=== PATIENT | female | born 1985 | race Two or more races ===

== ENCOUNTER 2021-11-08 10:18 | Emergency (ER) | payer OTHER, SELFPAY ==
[2021-11-08 10:21] VITALS: BP 117/67; PULSE 96; RESP 18; TEMP 36.2; O2SAT 98
[2021-11-08 11:02] LABS: Basophils Percent Auto 0.3 % (0.2-1.2); Eosinophils Absolute Auto 0.1 K/mm3 (0-0.3); Hematocrit 33.4 % (37.0-47.0); Hemoglobin 10.7 g/dL (12.0-15.0); Immature Granulocyte Absolute 0.12 K/mm3 (0.00-0.031); Immature Granulocyte Percent A 1.2 % (0-0.5); Lymphocytes Absolute Auto 1.93 K/mm3 (0.9-3.2); Lymphocytes Percent Auto 19.1 % (18.3-44.2); Mean Corpuscular Hemoglobin 29.1 pg (26-34); Mean Corpuscular Volume 90.8 fl (80-100); Mean Platelet Volume 8.5 fl (7.4-10.4); Monocytes Absolute Auto 0.6 K/mm3 (0.1-0.6); Monocytes Percent Auto 5.9 % (2.6-8.5); Neutrophils Absolute Auto 7.3 K/mm3 (1.3-6.7); Neutrophils Percent Auto 72.5 % (45.5-73.1); Platelet Count Result 192 k/mm3 (150-375); Red Blood Count 3.68 M/mm3 (4.2-5.4); Red Cell Distribution Width 15.1 % (11.5-14.5); White Blood Count 10.1 K/mm3 (4.5-10.0)
[2021-11-08 11:09] LABS: Appearance Urine Clear (Clear); Bilirubin Urine Negative (Negative); Blood Urine Trace-lysed (Negative); Color Urine Yellow (Yellow); Glucose Urine UA Negative (Negative); Ketones Urine Trace mg/dL (Negative); Leukocyte Esterase Ur Negative LEU/UL (Negative); Nitrate Urine Negative (Negative); Protein Urine Negative (Negative); Specific Grav Ur 1.025 (1.001-1.035); Urobilinogen Urine 0.2 mg/dL (<2.0); pH Urine 5.5 (5.0-9.0)
[2021-11-08 11:12] LABS: Alanine Aminotransferase 24 U/L (6-35); Albumin Level 3.5 g/dL (3.5-5.1); Alkaline Phosphatase 87 U/L (38-126); Anion Gap 8 mmol/L (8-16); Aspartate Amino Transferase 35 U/L (14-36); Bilirubin,Total 0.3 mg/dL (0.2-1.3); Blood Urea Nitrogen 4 mg/dL (7-17); Calcium 8.3 mg/dL (8.4-10.2); Carbon Dioxide 17 mmol/L (22-30); Chloride 109 mmol/L (98-107); Estimated CRCL calculation 188 ml/min; Estimated Glomerular Filt Rate > 60; Glucose 105 mg/dL (65-110); Potassium 3.9 mmol/L (3.4-5.0); Sodium 134 mmol/L (137-145)
[2021-11-08 11:14] LABS: Mucus Urine Rare /lpf; RBC Urine 0-2 /hpf (0-2); WBC Urine 0-3 /hpf
[2021-11-08 11:15] LABS: Add Urine Microscopic? YES
[2021-11-08] MEDS: LACTATED RINGERS 1,000 ML 999 ML IV CONT (11:31)
[2021-11-08] MEDS: FAMOTIDINE 20 MG/2 ML VIAL IV PUSH (11:33)
[2021-11-08] MEDS: ACETAMINOPHEN 325 MG TABLET 650 MG PO (11:35)
[2021-11-08] MEDS: diphenhydrAMINE HCl INJ 50 MG/ML VIAL 25 MG IV PUSH (11:36)
[2021-11-08] MEDS: METOCLOPRAMIDE HCL INJ 10 MG/2 ML VIAL IV PUSH (11:36)
--- NOTE | 2021-11-08 12:16 | ED.PREGNANCY ---
HPI - General Chief complaint: Abdominal Pain Stated complaint: 23 weeks /abd pain Time Seen by Provider: 11/08/21 11:04 History of Present Illness HPI Narrative: 36-year-old female who is 23 weeks presents here with left upper quadrant discomfort, and some left back pain. Denies any fevers or chills, vaginal bleeding, she does have some nausea also. No history of kidney stones. She did take some Tylenol at home with some improvement but still has some symptoms. No dysuria. No contractions. Related Data Allergies Allergy/AdvReac Type Severity Reaction Status Date / Time No Known Drug Allergies AdvReac Mild Other Verified 11/08/21 11:29 Review of Systems Review of Systems: CONST: No fever. HEENT: No sore throat C/V: No chest pain RESP: No cough GI: Reports abdominal pain, nausea : No dysuria. M/S: No joint pain. SKIN: No rash. NEURO: [No headache or focal numbness or weakness] PSYCH: [No depression] [facility], [facility] Past Medical History Medical History (Updated 11/08/21 @ 19:57 by Concha Duran MD) No active medical problems Social History Social History (Updated 11/08/21 @ 19:57 by Concha Duran MD) Smoking status: Never smoker Exam Narrative: EXAMINATION OF ORGAN SYSTEMS/BODY AREAS: Constitutional: Vital signs per nursing GENERAL: Appears uncomfortable in bed HEAD: Normal with no signs of head trauma. EYES: EOMI, conjunctiva normal ENT: Hearing grossly intact LUNGS: Nonlabored breathing. HEART: [Regular rate and rhythm] ABD: [Soft], mildly tender to palpation left upper quadrant no flank tenderness EXT: Normal range of motion SKIN: [No rashes or lesions.] NEURO: [Alert and oriented x 3. No gross focal sensory or strength deficits.] PSYCH: Normal affect Course Vital Signs Vital signs: Vital Signs Temperature 97.2 F L 11/08/21 10:21 Pulse Rate 96 11/08/21 10:21 Respiratory Rate 18 11/08/21 10:21 Blood Pressure 117/67 11/08/21 10:21 Pulse Oximetry 98 11/08/21 10:21 Oxygen Delivery Room Air 11/08/21 10:21 Temperature 97.2 F L 11/08/21 10:21 Pulse Rate 96 11/08/21 10:21 Respiratory Rate 18 11/08/21 10:21 Blood Pressure 117/67 11/08/21 10:21 Pulse Oximetry 98 11/08/21 10:21 Oxygen Delivery Room Air 11/08/21 10:21 MDM - OB/Uterine Contractions MDM Narrative Medical decision making narrative: Fifteen 36-year-old female at 23 weeks presenting with flank/abdominal tenderness, vital stable, exam does show some left sided pain, UTI/Bipin versus concerns for gastritis versus kidney stones, or discomfort of . Labs are unremarkable including a negative UA, patient is given fluids, Pepcid, Reglan with improvement in her symptoms, I discussed the case with GANG HEAD SAW OPERATOR on-call Dr. Carpio who agrees that getting a CT at this time would not be beneficial, as she is feeling better, she should follow-up in the clinic tomorrow and is stable for discharge home. Discussed this with the patient and family at bedside, they are agreeable to this plan. Strict return precautions provided. Lab Data Result diagrams: 11/08/21 10:54 11/08/21 10:54 Labs: Lab Results 11/08/21 11/08/21 11/08/21 Range/Units 10:54 10:54 10:54 WBC 10.1 H (4.5-10.0) K/mm3 RBC 3.68 L (4.2-5.4) M/mm3 Hgb 10.7 L (12.0-15.0) g/dL Hct 33.4 L (37.0-47.0) % MCV 90.8 (80-100) fl MCH 29.1 (26-34) pg MCHC 32.0 (32-36) g/dl RDW 15.1 H (11.5-14.5) % Plt Count 192 (150-375) k/mm3 MPV 8.5 (7.4-10.4) fl Immature Gran % (Auto) 1.2 H (0-0.5) % Neut % (Auto) 72.5 (45.5-73.1) % Lymph % (Auto) 19.1 (18.3-44.2) % [place] % (Auto) 5.9 (2.6-8.5) % Eos % (Auto) 1.0 (0-4.4) % Baso % (Auto) 0.3 (0.2-1.2) % Lymph # (Auto) 1.93 (0.9-3.2) K/mm3 [place] # (Auto) 0.6 (0.1-0.6) K/mm3 Eos # (Auto) 0.1 (0-0.3) K/mm3 Baso # (Auto) 0.0 (0.0-0.1) K/mm3 Abs Immat Gran (auto) 0
== END 2021-11-08 12:48 | disposition home or self-care (01) ==
PROVIDERS: Emergency Provider Emergency Medicine; PCP Physician Assistant
DX: O26.892 Other specified pregnancy related conditions, second trimester (principal); R10.12 Left upper quadrant pain; Z3A.23 23 weeks gestation of pregnancy
CPT/HCPCS: 36415; 80053; 81001; 81025; 85025; 96361; 96374; 96375; 99284; A9270; J1200; J2765; J7120

== ENCOUNTER 2021-11-09 08:57 | Observation (INO) | payer OTHER, SELFPAY ==
--- NOTE | 2021-11-09 08:57 | OBADM ---
This patient, Faith Schumacher, admitted to the OB room [facility] for observation. Patient/family oriented to hospital policies and general routines including ID bracelet, bed and alarms, visiting hours, pain management, procedures, bathroom and other care routines, personal items, smoking policy, room service/diet, and visiting hours. Patient/Family are encouraged to report perceived risks to care and to ask questions if they do not understand what they are told or what they should do.
--- NOTE | 2021-11-09 09:15 | PC.NURSE ---
Process Control Tech use to gather information from the pt. Pt moroccan speaking only. Pt reports being in the ER yesterday and discharged home. Pt reports having left upper abdominal pain that started yesterday. Pt took Tylenol last around 2200 which helped her pain until around 0200 in the morning. Pt revisited the ER again this morning and was brought to OB. Pt denies any other symptoms.
[2021-11-09 09:24] VITALS: BP 117/63; PULSE 107
--- NOTE | 2021-11-09 09:47 | PC.NURSE ---
Dr. Carpio updated on this pt. Dr. Carpio ordered amylase and lipase be drawn and 20mg Protonix be given.
[2021-11-09 09:50] VITALS: BMI 30.2
[2021-11-09] MEDS: PANTOPRAZOLE SOD SESQUIHYDRATE 20 MG TAB PO (10:01)
[2021-11-09 10:14] LABS: Amylase 60 U/L (30-110); Lipase 71 U/L (23-300)
--- NOTE | 2021-11-09 10:45 | PC.NURSE ---
Dr. Carpio updated on pt labs, orders received for pt to discharge. Dr. Carpio would like pt to see her primary doctor and change her diet to low fat, no grease, no fried foods.
--- NOTE | 2021-11-09 10:47 | PM.OBTRLD ---
OB - Triage/Final Diagnosis Visit Information Date of evaluation: 11/09/21 Reason for evaluation: other (abdominal pain) Comments/Additional reasons for admission: I have assessed the risk for this patient, Faith Schumacher, and determined that she would benefit from observation care. Evaluation Laboratory results: Laboratory Tests 11/09/21 09:57 Amylase 60 Lipase 71 Vital signs: Vital Signs - 24 hr 11/09/21 09:24 Pulse Rate 107 H Blood Pressure 117/63
[2021-11-09 10:50] VITALS: BP 117/63; PULSE 105
[2021-11-09] MEDS: FAMOTIDINE 20 MG TABLET PO (11:04)
== END 2021-11-09 11:19 | disposition home or self-care (01) ==
PROVIDERS: Admitting Provider Student in an Organized Health Care Education/Training Program; PCP Physician Assistant; Visit Provider Student in an Organized Health Care Education/Training Program
DX: O26.899 Other specified pregnancy related conditions, unspecified trimester (principal); R10.9 Unspecified abdominal pain; Z3A.00 Weeks of gestation of pregnancy not specified
CPT/HCPCS: 36415; 59025; 82150; 83690; A9270; G0378; G0379

== ENCOUNTER 2023-02-10 21:05 | Emergency (ER) | payer OTHER, SELFPAY ==
--- NOTE | ~2023-02-10 | CT_ITS ---
EXAMINATION: CT brain wo con DATE: 02/11/2023 00:51 INDICATION: Head injury. Dizziness. TECHNIQUE: Computed tomography (CT) of the head was performed without intravenous contrast. The mA wa s adjusted according to patient size. Iterative reconstruction technique was employed. The dose-lengt h product was 605.33 mGy-cm. COMPARISON: None FINDINGS: There is no intracranial hemorrhage, acute infarction, or abnormal intracranial mass lesion . The ventricles are normal in size. The orbits are normal. There is mild mucosal thickening in the e thmoid sinuses. The mastoid air cells are normal. IMPRESSION: 1. Normal brain. Reviewed, dictated and finalized at location E. IMPRESSION: 1. Normal brain.
--- NOTE | ~2023-02-10 | CT_ITS ---
EXAMINATION: CT cervical spine wo con DATE: 02/11/2023 00:51 INDICATION: Head injury. TECHNIQUE: Computed tomography (CT) of the cervical spine was performed without intravenous contrast. Automated exposure control and iterative reconstruction technique were employed. The dose-length pro duct was 383.56 mGy-cm. COMPARISON: None FINDINGS: There is 4 degrees dextrocurvature of cervical spine. There is mild kyphosis of cervical sp ine. Vertebral body heights and intervertebral disc heights are normal. At C7-T1, there is mild bilat eral facet joint osteoarthritis. No neural foraminal stenosis or central canal stenosis. IMPRESSION: 1. No fracture. Reviewed, dictated and finalized at location E. IMPRESSION: 1. No fracture.
--- NOTE | ~2023-02-10 | XR_ITS ---
EXAMINATION: XR chest 2V DATE: 02/11/2023 01:07 INDICATION: Transient alteration of awareness TECHNIQUE: Frontal and lateral views of the chest are obtained COMPARISON: None available FINDINGS: The lungs are free of acute opacities. No pleural effusion or pneumothorax. The cardiomedia stinal silhouette is normal. The visualized bones and soft tissues are unremarkable. IMPRESSION: 1. No acute cardiopulmonary abnormality. Reviewed, dictated and finalized at location A.
[2023-02-10 21:10] VITALS: BP 112/68; PULSE 93; RESP 15; TEMP 37; O2SAT 100
--- NOTE | 2023-02-10 21:13 | ECG_ITS ---
Measurements Intervals [place] Rate: 84 P: 44 WV: 176 QRS: -11 QRSD: 79 T: 4 QT: 381 QTc: 453 Interpretive Statements SINUS RHYTHM BORDERLINE T WAVE ABNORMALITY- ANT/INF LEADS BASELINE ARTIFACT- II, III, AVF BORDERLINE ECG NO PREVIOUS ECG AVAILABLE FOR COMPARISON Electronically Signed On 02-11-2023 7:56:00 CDT by Naif Graf D.O.
[2023-02-10 21:29] LABS: Basophils Percent Auto 0.3 % (0.2-1.2); Eosinophils Absolute Auto 0.1 K/mm3 (0-0.3); Eosinophils Percent Auto 0.9 % (0-4.4); Hematocrit 38.2 % (37.0-47.0); Hemoglobin 12.5 g/dL (12.0-15.0); Immature Granulocyte Absolute 0.03 K/mm3 (0.00-0.031); Immature Granulocyte Percent A 0.4 % (0-0.5); Lymphocytes Absolute Auto 2.24 K/mm3 (0.9-3.2); Mean Corpuscular HGB Conc 32.7 g/dl (32-36); Mean Corpuscular Hemoglobin 29.4 pg (26-34); Mean Corpuscular Volume 89.9 fl (80-100); Mean Platelet Volume 9.1 fl (7.4-10.4); Monocytes Absolute Auto 0.5 K/mm3 (0.1-0.6); Monocytes Percent Auto 5.8 % (2.6-8.5); Neutrophils Absolute Auto 5.2 K/mm3 (1.3-6.7); Neutrophils Percent Auto 64.6 % (45.5-73.1); Platelet Count Result 229 k/mm3 (150-375); Red Blood Count 4.25 M/mm3 (4.2-5.4); Red Cell Distribution Width 13.7 % (11.5-14.5)
[2023-02-10 21:38] LABS: Alanine Aminotransferase 21 U/L (6-35); Albumin Level 4.4 g/dL (3.5-5.1); Alkaline Phosphatase 87 U/L (38-126); Anion Gap 7 mmol/L (8-16); Aspartate Amino Transferase 29 U/L (14-36); Bilirubin,Total 0.8 mg/dL (0.2-1.3); Blood Urea Nitrogen 12 mg/dL (7-17); Calcium 8.4 mg/dL (8.4-10.2); Carbon Dioxide 23 mmol/L (22-30); Chloride 109 mmol/L (98-107); Estimated Glomerular Filt Rate > 60; Glucose 108 mg/dL (65-110); Potassium 3.9 mmol/L (3.4-5.0); Sodium 139 mmol/L (137-145)
[2023-02-11] MEDS: SODIUM CHLORIDE 0.9% IV 1,000 ML 999 ML IV CONT (00:07)
--- NOTE | 2023-02-11 00:28 | ED.SYNCOPE ---
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 Reports she was at home and was very frustrated. Reports she started to have tingling in her hands, felt lightheaded and her vision went black. Reports hitting her head. Reports neck pain. Denies any other current symptoms. Denies fever, visual changes, vomiting, chest pain, shortness of breath, palpitations, or current focal numbness or weakness. <ANNA Morton Last Filed: 02/13/23 17:11> Related Data Allergies/Adverse Reactions: Allergies Allergy/AdvReac Type Severity Reaction Status Date / Time No Known Drug Allergies AdvReac Mild Other Verified 02/10/23 21:16 <ANNA Morton Last Filed: 02/13/23 17:11> Review of Systems Review of Systems: CONSTITUTIONAL: Denies fever EYES: Denies visual changes CARDIOVASCULAR: Denies chest pain, palpitations, or edema. RESPIRATORY: Denies dyspnea. GASTROINTESTINAL: Denies vomiting MUSCULOSKELETAL: Reports joint pain, and myalgia. NEUROLOGIC: Denies headache, numbness, or weakness. <ANNA Morton Last Filed: 02/13/23 17:11> All systems reviewed & are unremarkable except as noted in HPI and below <Bibi Ledezma PA-C - Last Filed: 02/13/23 17:11> [facility] Past Medical History Medical History: Medical History (Updated 02/12/23 @ 00:00 by Edie Thomas) No active medical problems <Bibi Ledezma PA-C - Last Filed: 02/13/23 17:11> Social History Social History: Social History (Updated 11/08/21 @ 19:57 by Concha Duran MD) Smoking status: Never smoker <Bibi Ledezma PA-C - Last Filed: 02/13/23 17:11> Exam Narrative: GENERAL: Well-appearing, well-nourished, and in no acute distress. HEAD: Normocephalic, atraumatic. EYES: PERRLA and EOMI. ENT: Nares clear, no rhinorrhea or epistaxis. Mucous membranes moist. Oropharynx without tonsillar hypertrophy exudate or other lesions. Bilateral TMs pearly staley non-bulging NECK: Supple. No adenopathy or masses. C-collar in place CHEST: Clear to auscultation. No respiratory distress. No wheezes rales or rhonchi HEART: Regular rate and rhythm. No murmur heard. Normal peripheral pulses. EXTREMITIES: Normal range of motion. No edema or obvious deformity. Strength equal in bilateral upper and lower extremities (5/5) SKIN: Warm, dry, no rash. NEURO: No focal deficits. Alert and oriented x3. Cranial nerves 2-12 grossly intact PSYCH: Normal mood and affect <Bibi Ledezma PA-C - Last Filed: 02/13/23 17:11> Course Course Emergency Course: Patient and family updated on workup and agree with plan of care <Bibi Ledezma PA-C - Last Filed: 02/13/23 17:11> ENGINE LATHE OPERATOR/PA Physician Supervision This is a was performed by both a physician and an APC. I performed all aspects of the MDM as documented w/ the following additions: All questions answered. Patient in agreement w/ disposition. <Petros Mukherjee MD - Last Filed: 02/11/23 06:50> Vital Signs Vital signs: Vital Signs Temperature 98.6 F 02/10/23 21:10 Pulse Rate 93 02/10/23 21:10 Respiratory Rate 15 02/10/23 21:10 Blood Pressure 112/68 02/10/23 21:10 Pulse Oximetry 100 02/10/23 21:10 Oxygen Delivery Room Air 02/10/23 21:10 Temperature 98.6 F 02/10/23 21:10 Pulse Rate 79 02/11/23 07:07 Respir
[2023-02-11 02:24] VITALS: PULSE 65; RESP 20; O2SAT 100
[2023-02-11 03:13] LABS: Troponin I < 0.012 ng/mL (0.000-0.034)
[2023-02-11 04:25] VITALS: BP 93/61; PULSE 71; RESP 15; O2SAT 99
[2023-02-11 07:07] VITALS: BP 100/63; PULSE 79; RESP 25; O2SAT 100
== END 2023-02-11 07:08 | disposition home or self-care (01) ==
PROVIDERS: Emergency Medicine; Emergency Provider Physician Assistant; PCP Physician Assistant
DX: S09.90XA Unspecified injury of head, initial encounter (principal); W18.39XA Other fall on same level, initial encounter
CPT/HCPCS: 36415; 70450; 71046; 72125; 80053; 81025; 84484; 85025; 93005; 96360; 99284; J7030